=== PATIENT | male | born 1965 | race Caucasian/White ===

== ENCOUNTER 2016-06-19 14:15 | Emergency (ER) | payer BC ==
[~2016-06-19 14:15] MED LIST: LIDOCAINE 1%/EPINEPHRINE 20ML VIAL IJ ONE
[2016-06-19] MEDS ORDERED: LIDOCAINE 1%/EPINEPHRINE 20ML VIAL IJ ONE (15:50)
[2016-06-19] MEDS ORDERED: DIPH,PERTUSS(ACELL),TET VAC/PF 0.5 ML DISP.SYRIN IM ONE (16:02)
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
[2016-06-19 16:55] VITALS: BP 149/79
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
== END 2016-06-19 16:54 | disposition home or self-care (01) ==
LOC: ED 14:15
DX: S01.81XA Laceration without foreign body of other part of head, initial encounter (principal); W19.XXXA Unspecified fall, initial encounter; Y93.9 Activity, unspecified; Y99.9 Unspecified external cause status; F17.210 Nicotine dependence, cigarettes, uncomplicated; Z23 Encounter for immunization
CPT/HCPCS: 12014; 70450; 90471; 90715; 96372; 99283; 99284

== ENCOUNTER 2018-03-03 09:59 | Outpatient (CLI) | payer BC ==
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
== END 2018-03-03 10:00 ==
LOC: RAD 09:59
PROVIDERS: ATTEND Physician Assistant
DX: M25.511 Pain in right shoulder (principal)
CPT/HCPCS: 73030

== ENCOUNTER 2018-05-04 10:00 | Outpatient (CLI) | payer BC ==
[2018-05-06 14:31] LABS: ADENOVIRUS F 40/41 NOT DETECTED (Not Detected); ASTROVIRUS NOT DETECTED (Not Detected); C. DIFFICILE (TOXIN A/B) NOT DETECTED (Not Detected); CRYPTOSPORIDIUM NOT DETECTED (Not Detected); CYCLOSPORA CAYETANENSIS NOT DETECTED (Not Detected); ENTAMOEBA HISTOLYTICA NOT DETECTED (Not Detected); GIARDIA LAMBLIA NOT DETECTED (Not Detected); ROTAVIRUS A NOT DETECTED (Not Detected); SAPOVIRUS NOT DETECTED (Not Detected); VIBRIO CHOLERAE NOT DETECTED (Not Detected)
== END 2018-05-04 10:03 ==
LOC: LAB 10:00
PROVIDERS: ATTEND Physician Assistant
DX: R19.7 Diarrhea, unspecified (principal)
CPT/HCPCS: 87507

== ENCOUNTER 2018-07-07 10:19 | Outpatient (CLI) | payer BC ==
[2018-07-07 11:55] LABS: eGFR (Non-African) > 60
== END 2018-07-07 10:30 ==
LOC: LAB 10:19
PROVIDERS: ATTEND Nurse Practitioner Family
DX: I10 Essential (primary) hypertension (principal); R73.9 Hyperglycemia, unspecified
CPT/HCPCS: 36415; 80053; 80061; 83036

== ENCOUNTER 2018-08-18 09:09 | Outpatient (CLI) | payer BC ==
[2018-08-18 09:49] LABS: BASOPHILS % 3.4 % (0.0-1.5); EOSINOPHILS % 4.6 % (0.0-6.8); MEAN CORPUSCULAR HEMOGLOBIN 31.8 pg (28.0-34.0); MONOCYTES % 5.9 % (0.0-11.0); NEUTROPHILS # 2.9 # k/uL (1.4-7.7)
[2018-08-18 09:56] LABS: eGFR (Non-African) > 60
== END 2018-08-18 09:20 ==
LOC: LAB 09:09
PROVIDERS: ATTEND Nurse Practitioner Family
DX: I10 Essential (primary) hypertension (principal); Z86.2 Personal history of diseases of the blood and blood-forming organs and certain disorders involving the immune mechanism
CPT/HCPCS: 36415; 80053; 85025